=== PATIENT | female | born 1940 | race Caucasian/White ===

== ENCOUNTER 2024-04-12 14:56 | Emergency (ER) | payer MEDICARE | END 2024-04-12 15:56 | disposition left against medical advice (07) | LOC: VM.ED 14:56 | DX: Z53.21 Procedure and treatment not carried out due to patient leaving prior to being seen by health care provider (principal) ==

== ENCOUNTER 2024-04-14 05:17 | Emergency (ER) | payer MEDICARE ==
[2024-04-14 06:26] LABS: APPEARANCE,URINE CLOUDY (CLEAR); BILIRUBIN,URINE NEGATIVE (NEGATIVE); COLOR,URINE YELLOW (YELLOW); GLUCOSE,URINE NEGATIVE (NEGATIVE); KETONES,URINE NEGATIVE (NEGATIVE); LEUKOCYTE ESTERASE,URINE MODERATE (NEGATIVE); NITRITE,URINE POSITIVE (NEGATIVE); OCCULT BLOOD,URINE LARGE (NEGATIVE); PH,URINE 5.5 (5.0-8.0); PROTEIN,URINE 100 mg/dL (NEGATIVE); UROBILINOGEN,URINE 0.2 EU/dL (0.2)
[2024-04-14 06:28] LABS: RBC,URINE 40-50 /HPF (NOT SEEN); SQUAMOUS EPITHELIAL CELLS,UR FEW /HPF (NOT SEEN); WBC,URINE 50-75 /HPF (NOT SEEN)
[2024-04-14 06:29] LABS: AMORPHOUS SEDIMENT,URINE FEW; BACTERIA,URINE MANY /HPF (NOT SEEN); MUCUS,URINE FEW /LPF (NOT SEEN)
[2024-04-14] MEDS: cefTRIAXone 1 GM, Lidocaine 1% 2.1 ML IM ONE (06:38)
[2024-04-14] MEDS: traMADol 50 MG Tab PO ONE (06:38)
== END 2024-04-14 07:02 | disposition home or self-care (01) ==
LOC: VM.ED 05:17
DX: N39.0 Urinary tract infection, site not specified (principal); Z79.82 Long term (current) use of aspirin; Z79.4 Long term (current) use of insulin; Z79.899 Other long term (current) drug therapy; Z88.5 Allergy status to narcotic agent; Z88.8 Allergy status to other drugs, medicaments and biological substances
CPT/HCPCS: 81001; 87086; 87088; 87186; 96372; 99283; 99284; A9270-GY; J0696; J3490

== ENCOUNTER 2025-05-13 10:09 | Inpatient (IN) | payer MEDICARE, MEDICAID ==
[2025-05-14] MEDS ORDERED: Sodium Chloride 0.9% 10 ML Syringe FLUSH PRN ×2 (13:47)
[2025-05-14] MEDS ORDERED: 50% Dextrose in Water 50 ML Syringe IVPUSH PRN (13:47)
[2025-05-14] MEDS ORDERED: Magnesium Hydroxide 400 MG/5 ML Susp 30 ML Cup PO PRN (13:47)
[2025-05-14] MEDS: Insulin Glarg,Human.Rec.Analog 100 Unit/ML 10 ML Vial SUBCUT SCH (20:49)
[2025-05-15] MEDS: Insulin Glarg,Human.Rec.Analog 100 Unit/ML 10 ML Vial SUBCUT SCH (20:22)
[2025-05-16] MEDS: Iopamidol 612 MG/ML 100 ML Bottle IVPUSH ONE (21:01)
[2025-05-17 17:30] LABS: GLUCOSE,URINE NEGATIVE (NEGATIVE); OCCULT BLOOD,URINE MODERATE (NEGATIVE)
[2025-05-17 17:33] LABS: APPEARANCE,URINE SLIGHTLY CLOUDY (CLEAR)
[2025-05-17 17:38] LABS: SQUAMOUS EPITHELIAL CELLS,UR NOT SEEN /HPF (NOT SEEN)
[2025-05-18] MEDS: Ondansetron 4 MG Tab.DIS PO PRN (10:48)
[2025-05-21] MEDS ORDERED: Acetaminophen/HYDROcodone 325-5 MG Tab PO PRN (09:45)
== END 2025-05-28 14:45 | disposition home or self-care (01) | DRG 948 ==
LOC: VM.MS 05-14 14:02
PROVIDERS: ADMIT Family Medicine; ATTEND Family Medicine
DX: R53.81 Other malaise (principal); N39.0 Urinary tract infection, site not specified; E11.9 Type 2 diabetes mellitus without complications; I48.0 Paroxysmal atrial fibrillation; R31.0 Gross hematuria; S62.101A Fracture of unspecified carpal bone, right wrist, initial encounter for closed fracture; R29.6 Repeated falls; R35.0 Frequency of micturition; S52.614D Nondisplaced fracture of right ulna styloid process, subsequent encounter for closed fracture with routine healing; S52.591D Other fractures of lower end of right radius, subsequent encounter for closed fracture with routine healing; S02.401D Maxillary fracture, unspecified side, subsequent encounter for fracture with routine healing; S60.00XD Contusion of unspecified finger without damage to nail, subsequent encounter; Z79.82 Long term (current) use of aspirin; Z79.1 Long term (current) use of non-steroidal anti-inflammatories (NSAID); Z79.4 Long term (current) use of insulin; Z79.01 Long term (current) use of anticoagulants; Z79.2 Long term (current) use of antibiotics; Z79.891 Long term (current) use of opiate analgesic; Z79.899 Other long term (current) drug therapy; Z90.49 Acquired absence of other specified parts of digestive tract; Z90.710 Acquired absence of both cervix and uterus; Z98.890 Other specified postprocedural states; W18.30XD Fall on same level, unspecified, subsequent encounter
CPT/HCPCS: 74178; 81001; 82947; 97110-GO; 97110-GP; 97116-GP; 97164-GP; 97535-GO; 97760-GO; 99307-GT; 99316-GT; A9270-GY; Q9967